=== PATIENT | male | born 1950 | race Caucasian/White ===

== ENCOUNTER 2024-08-05 13:21 | Emergency (ER) | payer OTHER, SELFPAY ==
[2024-08-05 13:50] VITALS: BP 234/94; PULSE 81; RESP 19; TEMP 36.6; O2SAT 96; BMI 32.1
--- NOTE | 2024-08-05 13:52 | ED_ITS ---
HPI - General Adult General Chief complaint: General Medical Stated complaint: High Blood Pressure Time Seen by Provider: 08/05/24 20:50 Source: patient Mode of arrival: ambulatory Limitations: no limitations History of Present Illness ED Provider: Dr. Saul Bañuelos HPI narrative: 74-year-old male with a history of hypertension, anxiety, panic attacks who presents emergency department for evaluation of an elevated blood pressure. The patient states that he went to a chiropractor and prior to getting an adjustment his blood pressure was checked. The patient's blood pressure was high and the chiropractor recommended that the patient go to the emergency department for evaluation. The patient states that he has a history of high blood pressure and states that point he was told by his doctor that he did not need to be on blood pressure medications. The patient states that he was on verapamil and was changed to Zestoretic. He states that he felt very weak and fatigued on the Zestoretic in his also been on a another TRENT inhibitor which made him feel unwell. 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 The patient denied any concerning systemic symptoms such as fever, chills, headache, chest pain, shortness of breath, nausea, vomiting, weakness, fatigue, shortness of breath or dyspnea on exertion. Related Data Previous Rx's ?Medication ?Instructions ?Recorded amlodipine 5 mg tablet 5 mg PO DAILY 90 days #90 tabs 08/05/24 Allergies Allergy/AdvReac Type Severity Reaction Status Date / Time Penicillins [PCN] Allergy Unknown Verified 08/05/24 13:54 Review of Systems 2 Review of Systems: Yes all other systems are reviewed and are negative [facility] Past Medical History [facility] Narrative: The patient denies tobacco use. He states that drinks alcohol 2 to 3 times a year. He denies drug use. Social History Social History Smoked in Last 30 Days: No Use of substances other than those prescribed or required for medical reasons: No Advance Directives: No Advance Directives Information Provided: Yes Do you have a plan to hurt others: No Plan Physical Exam ED Vital Signs: Vital Signs - 24 hr 08/05/24 13:50 08/05/24 20:20 Temperature 98 F Pulse Rate 81 80 Respiratory Rate 19 18 Blood Pressure 234/94 H 190/96 H Pulse Oximetry 96 98 Oxygen Delivery Method Room Air Room Air BMI result Body Mass Index 32.1 Vital signs revealed elevated blood pressures have 234/94 and 190/96 Exam: General: Awake, alert in no distress Head: Normocephalic, atraumatic EENT: PERRL, Lids normal, sclera normal, conjunctiva normal, nose normal , ears normal, throat without erythema or exudates Neck: Supple, no adenopathy Lung: breath sounds symmetric, no wheezing, rales or rhonchi Chest: symmetric movement, nontender Heart: regular rate and rhythm, normal S1, S2 no murmurs or rubs Abdomen: soft, non-tender, nondistended, normal bowel sounds Back: no vertebral tenderness, no CVAT Extremities: no deformities, moves all extremities symmetrically Neuro: Awake, alert, oriented, normal speech, cranial nerves intact, moves all extremities symmetrically Psych: Pleasant, cooperative Course Course Course Narrative: RME, this is a rapid medical exam performed by Konstantin Victoria please refer to primary provider for complete H&P- 74 year old male presents for evaluation of high blood pressure. He went to his chiropractor and was found to be hypertensive. He is not currently on any meds for hypertension. His primary doctor discontinue his amlodipine in the last year. He denies any headache or chest pain but does endorse some lightheadedness. Plan for labs, EKG. Medical Decision Making Medical Decision Making [facility] Narrative: 74-year-old male with a history of hypertension, anxiety, panic attacks who presents emergency department for evaluation of an elevated blood pressure that was obtained just prior to a chiropractic appointment. Patient states that he was taken off his blood pressure medications by his PCP in his not been on medications for a long time. Patient states that he had been on verapamil and his doctor changed him to Zestoretic which made him feel bad. He states he was had a another TRENT inhibitor which also made him feel bad. Patient had no concerning systemic symptoms. Except for his elevated blood pressures physical examination was unremarkable. Differential diagnosis: ?Includes but is not limited to primary hypertension, secondary hypertension, myocardial infarction, myocardial ischemia, stroke, renal failure, liver failure, electrolyte Course: 21:42 My interpretation of the patient's laboratory evaluation is as follows: WBC elevated 12,300. H&H was normal 14 and 43 with a low MCV of 63.9-patient states that he has thalassemia trait. BUN creatinine normal. LFTs were normal. Troponin was below detectable limits. Patient was 12 EKG was unremarkable. Patient's presentation is consistent with asymptomatic primary hypertension. Given his elevated readings felt that the patient should be started on antihypertensive medications at this time and the patient agreed with this plan. Patient was given amlodipine 5 mg orally. He was given a prescription for amlodipine 5 mg daily with a 90 day supply. The patient he was given instructions on monitoring his blood pressure and following up with the PCP. Patient was given our referral number, [facility] referral number and the number to the PCP on-call for the emergency department. I told him to call these numbers to see if he can get a PCP follow-up within 1 month. Admission/Observation Consideration of admission/observation: Escalation of care including admission/observation considered (Yes) Lab Data MDM Lab Attestation statement: I reviewed the patient's lab results. 08/05/24 14:08 08/05/24 14:08 Labs: Lab Results 08/05/24 Range/Units 14:08 WBC 12.3 H (4.8-10.8) X10*3/uL RBC 6.82 H (4.60-5.80) X10*6/uL Hgb 14.0 (14.0-18.0) g/dl Hct 43.6 (42.0-52.0) % MCV 63.9 L (80.0-98.0) fL MCH 20.5 L (27.0-33.0) pg MCHC 32.1 (31.0-36.0) g/dl RDW 17.7 H (11.0-16.0) % Plt Count 200 (160-400) X10*3/uL MPV 10.1 (9.4-12.4) fL Immature Gran % (Auto) 0.5 H (0.0-0.4) % Neut % (Auto) 81.6 H (45-73) % Lymph % (Auto) 11.3 L (20-40) % Woods % (Auto) 5.5 (2-11) % Eos % (Auto) 0.6 (0-4) % Baso % (Auto) 0.5 (0-2) % Lymph # (Auto) 1.4 (1.2-4.9) X10*3/uL Woods # (Auto) 0.7 (0.1-1.2) X10*3/uL Eos # (Auto) 0.1 (0.0-0.4) X10*3/uL Baso # (Auto) 0.1 (0.0-0.2) X10*3/uL Abs Immat Gran (auto) 0.06 H (0.00-0.03) X10*3/uL Absolute Neuts (auto) 10.1 H (2.0-8.3) x10*3/uL Absolute Nucleated RBC 0.000 (0.0-0.012) X10*3/uL Nucleated RBC % (auto) 0.0 (0.0-0.2) /100WBC Sodium 137 (135-145) mmol/L Potassium 4.1 (3.3-5.1) mmol/L Chloride 106 (96-108) mmol/L Carbon Dioxide 24 (22-29) mmol/L Anion Gap 11 L (12-20) BUN 19 H (9-16) mg/dL Creatinine 0.93 (0.5-1.4) mg/dL Estim Creat Clear Calc 94.7 Estimated GFR > 60 Random Glucose 118 H (60-115) mg/dL Calcium 9.6 (8.4-10.2) mg/dL Total Bilirubin 1.9 H (0.0-1.0) mg/dL AST 37 (5-37) U/L ALT 67 H (0-40) U/L Alkaline Phosphatase 62 (39-117) U/L Troponin I High Sens < 2.7 (<3.5-35.0) ng/L Total Protein 8.3 H (6.5-8.0) g/dL Albumin 4.3 (3.5-5.0) g/dL Independent Interpretation I performed an independent interpretation of an: EKG Interpretation: My independent interpretation patient's 12 EKG done on 08/05/2024 at 14:01 hours is as follows: Normal sinus rhythm rate of 78, normal FL interval, QRS duration QTC interval, no ST segment elevation, no ST segment depression, Q-wave in lead 3, no T-wave abnormalities. This is a normal EKG. Prescription Management I considered prescription management with: Pain Medication (Antihypertensive: Amlodipine) Chronic Conditions Patient?s care impacted by: Hypertension Discharge Plan Discharge Clinical Impression: Primary hypertension Patient Disposition: Home, Self-Care Additional Instructions: High blood pressure instructions: The reason to check your blood pressure at home is to give your doctor an idea of what your blood pressure does when you are not in the doctor's office. Take your blood pressure in the mornings, Mondays , Wednesdays and Fridays and then write down these readings to discuss them with your doctor at your next visit. Do this until your next appointment. Do not take your blood pressure more often then 3 times a week and do not worry about any high readings . If your doctor thinks that your blood pressures are too high then they will either increase your high blood pressure medication or start you on a 2nd high blood pressure medication. If your doctor changes your blood pressure medications it will take anywhere from 2-6 week before these medications work to reduce your blood pressure. A blood pressure medication that lower your blood pressure to rapidly can make you feel very weak and fatigued. Follow-up with your doctor to discuss your blood pressure readings in 2 weeks Please return to the emergency department if your symptoms get worse or if you develop any new symptoms that are concerning to you. Try calling the following numbers to see if you can get a primary care provider to help you with your medical problems. [facility] PCP referral line ?for adult primary care and family practice medicine. [facility] The primary care doctor on-call for the emergency department is Dr. Andrew Lord . Please call his office to see if he has availability to take you on as in you patient to help manage your blood pressure. Prescriptions: New amlodipine 5 mg tablet 5 mg PO DAILY 90 Days Qty: 90 0RF Print Language: Gibraltarian
--- NOTE | 2024-08-05 13:55 | ECG_ITS ---
Test Reason : HTN Blood Pressure : */* mmHG Vent. Rate : 78 BPM Atrial Rate : 78 BPM P-R Int : 166 ms QRS Dur : 84 ms QT Int : 386 ms P-R-T Axes : 41 14 53 degrees QTcB Int : 440 ms Normal sinus rhythm Normal ECG No previous ECGs available Referred By: Ghanshyam Victoria Electronically Signed By: ROMEL MAN
[2024-08-05 14:14] LABS: MANUAL DIFF FLAG NO
[2024-08-05 14:21] LABS: Basophils Absolute Auto 0.1 X10*3/uL (0.0-0.2); Basophils Percent Auto 0.5 % (0-2); Eosinophils Absolute Auto 0.1 X10*3/uL (0.0-0.4); Eosinophils Percent Auto 0.6 % (0-4); Hematocrit 43.6 % (42.0-52.0); Imm Gran Abs Auto 0.06 X10*3/uL (0.00-0.03); Imm Gran Pct Auto 0.5 % (0.0-0.4); Lymphocytes Absolute Auto 1.4 X10*3/uL (1.2-4.9); Lymphocytes Percent Auto 11.3 % (20-40); Mean Corpuscular HGB Conc 32.1 g/dl (31.0-36.0); Mean Corpuscular Hemoglobin 20.5 pg (27.0-33.0); Mean Corpuscular Volume 63.9 fL (80.0-98.0); Mean Platelet Volume 10.1 fL (9.4-12.4); Monocytes Absolute Auto 0.7 X10*3/uL (0.1-1.2); Monocytes Percent Auto 5.5 % (2-11); Neutrophils Absolute Auto 10.1 x10*3/uL (2.0-8.3); Neutrophils Percent Auto 81.6 % (45-73); Platelet Count 200 X10*3/uL (160-400); Red Blood Count 6.82 X10*6/uL (4.60-5.80); Red Cell Distribution Width 17.7 % (11.0-16.0); White Blood Count 12.3 X10*3/uL (4.8-10.8)
[2024-08-05 14:31] LABS: Alanine Aminotransferase 67 U/L (0-40); Albumin Level 4.3 g/dL (3.5-5.0); Alkaline Phosphatase 62 U/L (39-117); Anion Gap 11 (12-20); Aspartate Amino Transferase 37 U/L (5-37); Bilirubin Total 1.9 mg/dL (0.0-1.0); Blood Urea Nitrogen 19 mg/dL (9-16); Calcium 9.6 mg/dL (8.4-10.2); Carbon Dioxide 24 mmol/L (22-29); Chloride 106 mmol/L (96-108); Creatinine Clr Calc Pharmacy 94.7; Estimated Glomerular Filt Rate > 60; Glucose Random 118 mg/dL (60-115); Potassium 4.1 mmol/L (3.3-5.1); Sodium 137 mmol/L (135-145); Total Protein 8.3 g/dL (6.5-8.0)
[2024-08-05 14:40] LABS: Troponin-I High Sensitivity < 2.7 ng/L (<3.5-35.0)
[2024-08-05 20:20] VITALS: BP 190/96; PULSE 80; RESP 18; O2SAT 98
--- OUTSIDE RECORDS SUMMARY | 2024-08-05 20:49 | XMS_ITS | Clinical Summary ---
Author Organization [facility] Address [address] [place] [address] Phone Care Team Providers Care Geriatric Case Manager Name Role Phone Pcp, Unknown Primary Care Provider Unavailabl e Social History Tobacco Use Types Packs/Day Years Used Date Smoking Tobacco: Never Assessed Sex and Gender Information Value Date Recorded Sex Assigned at Not on file Gender Identity Not on file Sexual Orientation Not on file Plan of Treatment Upcoming Encounters Date Type Department Care Team (Late st Contact Info) Description 08/11/2024 1:20 PM EDT Appointment [facility] [address] [place] [address] Rosemary Campuzano PA-C [address] [place] [address] [email or web address] Health Maintenance Due Date Last Done Comments Adult Td,Tdap Booster 1950 LIPID PANEL 1951 DEPRESSION SCREENING 1963 HEPATITIS C SCREENING 1969 PNEUMOCOCCAL VACCINES (50+ y ears) (1 of 1 - PCV) 2001 ZOSTER VACCINES (1 of 2) 2001 INFLUENZA VACCINE (#1) 2023 COVID-19 VACCINE ( - 2023-2 5 season) 2024 RSV VACCINE (1 - 1-dose 75+ series) 2026 COLORECTAL CANCER SCREENING Completed HEPATITIS A VACCINES Aged Out No long er eligible based on patient's age to complete this topic HIB VACCINES Aged Out No longer eligi ble based on patient's age to complete this topic MENINGOCOCCAL VACCINES (ACWY) Aged Out No longer eligible based on patient's age to complete this topic Medical Devices Not on file Care Teams Geriatric Case Manager Relationship Specialty Start Date End Date Pcp, Unknown PCP - General 08/05/24 Additional Source Comments The information contained in this document represents components of the legal health record. It is not the complete legal health record.[facility]
[2024-08-05 21:48] VITALS: BP 203/89; PULSE 66
[2024-08-05 21:50] VITALS: BP 203/89
[2024-08-05] MEDS: amLODIPine Besylate 5 MG TABLET PO (21:50)
[2024-08-05 21:51] VITALS: BP 203/89; PULSE 66; RESP 20; TEMP 36.6; O2SAT 98
== END 2024-08-05 21:53 | disposition home or self-care (01) ==
PROVIDERS: Physician Assistant; Emergency Provider Emergency Medicine Emergency Medical Services
DX: I10 Essential (primary) hypertension (principal); Z79.899 Other long term (current) drug therapy
CPT/HCPCS: 36415; 80053; 84484; 85025; 93005; 99283; 99284

== ENCOUNTER → 2024-08-05 13:55 | Outpatient (BNV) | payer MEDICARE, SELFPAY | PROVIDERS: Visit Provider Internal Medicine | DX: I10 Essential (primary) hypertension (principal) | CPT/HCPCS: 93010 ==